=== PATIENT | female | born 1990 | race Caucasian/White ===

== ENCOUNTER 2016-12-05 18:43 | Outpatient (CLI) | payer OTHER ==
[~2016-12-05] VITALS: Ht 165.1 cm; Wt 55.8 kg
[2016-12-05 19:26] VITALS: BP 98/57; PULSE 88; RESP 18; Ht 165.1 cm; Wt 55.8 kg
[2016-12-05] MEDS ORDERED: PREN1TAB62 PO (19:29)
--- NOTE | 2016-12-05 19:48 | RADRPT ---
PROCEDURE: Obstetrical ultrasound greater than 14 weeks CLINICAL INDICATION: induced hypertension TECHNIQUE: Real time sonographic imaging of the gravid uterus is performed transabdominally and mu ltiple static ayala scale and Doppler images are submitted for review as are measurements. The image s are reviewed on the PACS. COMPARISON: 10/08/2016 FINDINGS: There is a single living intrauterine gestation in cephalic presentation. The heart beat is estimated at 134 bpm. The measurements are as follows: BPD:7.94 cm HC:28.70 cm AC:27.55 cm FL:6.11 cm Estimated gestational age is 31 weeks 5 days. The estimated date of delivery is 02/01/2017. The int erval growth is greater than would be anticipated based on the previous exam. The estimated weight is 1814 grams, greater than the 97th percentile. Placenta is posterior and grade 1. There is no evidence of placenta previa or abruption. The amniotic fluid index is not calculated but appears qualitatively normal RPTAT:HJJR IMPRESSION: 1. Single viable intrauterine gestation estimated at 31 weeks 5 days with the estimated date of deli very 02/01/2017, the interval growth greater than would be expected based upon the exam of 6. 2. The estimated weight of 1814 g is greater than the 97th percentile concerning for macrosomi a. Physician Ynes Date Time Electronically viewed and signed by Physician Ynes on 12/05/2016 19:48 /
--- NOTE | 2016-12-05 19:49 | RADRPT ---
PROCEDURE: US OB. CLINICAL INDICATION: induced hypertension TECHNIQUE: Pelvic ultrasound performed for biophysical profile. COMPARISON: Exam from 12/05/2016 and 11/08/2015 FINDINGS: Single intrauterine gestation present with heart rate at 122 beats per minute. Presentation is ceph alic. Placenta is anterior, grade I. Biophysical profile score is 8/8 (breathing=2, movement=2, to ne =2, fluid volume=2). Amniotic fluid volume is within normal limits, with TACHO = 11.2 cm. RPTAT:HJJR IMPRESSION: Biophysical profile score 8/8. Physician Ynes Date Time Electronically viewed and signed by Physician Ynes on 12/05/2016 19:49 JR/
[2016-12-05 20:10] LABS: ADD SCAN DIFF NO
[2016-12-05 20:15] LABS: ADD UMIC YES; URINE BILIRUBIN (Dip) NEGATIVE (NEGATIVE); URINE BLOOD (Dip) 3+ (NEGATIVE); URINE COLOR LT. YELLOW (YELLOW); URINE GLUCOSE (Dip) NEGATIVE (NEGATIVE); URINE KETONES (Dip) NEGATIVE (NEGATIVE); URINE LEUKOCYTE ESTERASE (Dip) NEGATIVE (NEGATIVE); URINE NITRITE (Dip) NEGATIVE (NEGATIVE); URINE TOTAL PROTEIN (Dip) NEGATIVE (NEGATIVE); URINE UROBILINOGEN (Dip) 0.2 E.U./dL (0.1-1.0)
[2016-12-05 20:17] LABS: BASOPHILS % 0.1 % (0.0-2.0); EOSINOPHILS # 0.1 10^3/ul (0.0-0.5); EOSINOPHILS % 1.3 % (0.0-7.0); HEMATOCRIT 28.7 % (37.0-47.0); HEMOGLOBIN 9.6 g/dl (12.0-16.0); LYMPHOCYTES % 24.1 % (15.0-51.0); MEAN CORPUSCULAR HEMOGLOBIN 28.6 pg (29.0-33.0); MEAN CORPUSCULAR HGB CONC 33.4 g/dl (32.0-37.0); MEAN CORPUSCULAR VOLUME 85.4 fl (82.0-101.0); MEAN PLATELET VOLUME 10.6 fl (7.4-10.4); MONOCYTE # 0.4 10^3/ul (0.3-0.9); MONOCYTES % 4.9 % (0.0-11.0); NEUTROPHIL # 5.8 10^3/ul (1.6-7.5); NEUTROPHILS % 69.2 % (39.0-77.0); PLATELET COUNT 204 10^3/UL (140-415); RED BLOOD COUNT 3.36 10^6/ul (4.20-5.40); RED CELL DISTRIBUTION WIDTH 12.8 % (11.5-14.5); WHITE BLOOD COUNT 8.4 10^3/ul (4.8-10.8)
[2016-12-05 20:26] LABS: URINE RBCS >50 /HPF (0)
[2016-12-05 20:27] LABS: ALBUMIN 3.5 g/dl (3.3-4.9); BACTERIA,URINE FEW; SQUAMOUS EPITHELIAL CELL,UR MANY
[2016-12-05 20:28] LABS: POTASSIUM 3.5 mmol/L (3.5-5.1)
[2016-12-05 20:30] LABS: ALBUMIN/GLOBULIN RATIO 1.25; BILIRUBIN,INDIRECT 0.2 mg/dl (0-1.1); BILIRUBIN,TOTAL 0.2 mg/dl (0.2-1.3); CREATININE 0.58 mg/dl (0.44-1.00); TOTAL PROTEIN 6.3 g/dl (6.1-8.1)
--- NOTE | 2016-12-05 21:46 | PN ---
Date/Time of Note Date/Time of Note DATE: 12/05/16 TIME: 21:42 OB Subjective Subjective Subjective 26 yo P 3 @ 28 wks, c/o dizziness No obstetric complaints- good FM,no VB, no LOF, no ctx OB Objective Objective Objective Abdomen- gravid,n/t SVE- deferred FHT- Cat I [place]- no ctx labs: nml WBC, hgb 9.6, nml electrolytes u/a- 3+ blood Abdomen: WNL Heart Rate: 120's Accelerations: Accelerations Present Decelerations: No Decelerations Varibility: Moderate Contractions on Admission: None OB Assessment/Plan Other Assessment: 26 yo P3 @ 28 wks w dizziness, likely secondary to anemia - nml electrolytes, nml WC count - patient advised to return to clinic for urine cltx tomorrow to evaluate blood in urine - advised to take Iron TID, as she has had 3 prior c/d and is at risk for hemorrage during her repeat c/d SAMANTHA KOENIG MD Dec 05, 2016 21:46
--- NOTE | 2016-12-05 21:52 | TRIAGE ---
OB Triage Datetime Report Generated by CPN: 12/05/2016 21:51 Datetime: 12/05/2016 21:40 Labor Evaluation Frequency: 0 Monitor Mode: External Heart Rate FHR Baseline Rate: 125 Monitor Mode: External US FHR Baseline Changes: No Baseline Change Variability: Moderate 6-25 bpm Accelerations: 15X15 Decelerations: None Category: Category I Datetime: 12/05/2016 21:30 Stage of : OB Triage Datetime: 12/05/2016 21:00 Labor Evaluation Frequency: 0 Monitor Mode: External Heart Rate FHR Baseline Rate: 125 Monitor Mode: External US FHR Baseline Changes: No Baseline Change Variability: Moderate 6-25 bpm Accelerations: 15X15 Decelerations: None Category: Category I Datetime: 12/05/2016 19:58 Labor Evaluation Frequency: 0 Monitor Mode: External Heart Rate FHR Baseline Rate: 145 Monitor Mode: External US FHR Baseline Changes: No Baseline Change Variability: Moderate 6-25 bpm Accelerations: 15X15 Decelerations: None Category: Category I Datetime: 12/05/2016 19:11 Stage of : OB Triage Time of Arrival: 12/05/2016 18:40 EGA: 28.3 Arrived By: Wheelchair Arrived From: Office Chief Complaint: C/O DIZZINESS THAT STARTED THIS AM @ [facility] Movement: Present Contractions: Denies/Absent Rupture of Membranes: Denies Vaginal Bleeding: None Vaginal Discharge: Denies Recent Sexual Intercouse: Denies Abdominal Trauma: Not Applicable Time Provider Notified: 12/05/2016 20:23 Provider Notified: DR DICKENS Initial Plan: CALL ABI FLETCHER Maternal Assessment Level of Consciousness: Fully Conscious DTR's/Clonus: DTRs 2+; No Clonus Headache: Denies Blurred Vision: No Respiratory Effort: Unlabored; Regular Rhythm; Equal Expansion Breath Sounds, Left: Clear and Equal Breath Sounds, Right: Clear and Equal Nausea/Vomiting: Denies RUQ Epigastric Pain: Denies Lower Extremities Edema: None Degree: None Upper Extremities Edema: None Degree: None Facial Edema: None Temperature Route: Oral Fall Risk Assessment History of Falling: (0) No Secondary Diagnosis: (0) No Ambulatory Aid: (0) Bedrest/Nurse Assist IV Therapy: (0) No Gait: (0) Normal/Bedrest/Immobile Mental Status: (0) Oriented to Own Ability Fall Score: 0 Fall Risk Score Definition: No Risk: No action required Monitor Mode: External Monitor Mode: External US
== END 2016-12-05 21:30 | disposition home or self-care (01) ==
LOC: OBT 18:43 → L-D 18:43 → OBT 21:30
PROVIDERS: ATTEND Obstetrics & Gynecology
DX: O26.893 Other specified pregnancy related conditions, third trimester (principal); R42 Dizziness and giddiness; O13.3 Gestational [pregnancy-induced] hypertension without significant proteinuria, third trimester; Z3A.28 28 weeks gestation of pregnancy
CPT/HCPCS: 36415; 76815; 76818; 80053; 81001; 85025; Z7500; 81003; G0463

== ENCOUNTER 2017-02-13 14:44 | Inpatient (IN) | payer OTHER ==
[~2017-02-13] VITALS: Ht 165.1 cm; Wt 58.6 kg
[~2017-02-13 14:44] MED LIST: PREN1TAB62 PO
[2017-02-13 15:11] VITALS: Ht 165.1 cm; Wt 58.6 kg
[2017-02-13] MEDS ORDERED: OXYTOCIN 30 UNITS/LR 500 ML IV PRN ×2 (16:00→23:00)
[2017-02-13] MEDS ORDERED: CEFAZOLIN 2 GM/50 ML (PMX) 50 ML IV SCH (16:00)
[2017-02-13] MEDS ORDERED: CARBOPROST 250 MCG INJ IM PRN ×2 (16:00→23:00)
[2017-02-13] MEDS ORDERED: LACTATED RINGER'S 1,000 ML IV SCH (16:00)
[2017-02-13] MEDS ORDERED: MISOPROSTOL 200 MCG TAB PR PRN ×2 (16:00→23:00)
[2017-02-13] MEDS ORDERED: METHYLERGONOVINE 0.2 MG INJ IM PRN ×2 (16:00→23:00)
[2017-02-13 16:36] LABS: ADD SCAN DIFF NO
[2017-02-13 16:37] LABS: BASOPHILS % 0.2 % (0.0-2.0); EOSINOPHILS % 0.3 % (0.0-7.0); HEMATOCRIT 31.3 % (37.0-47.0); LYMPHOCYTES # 2.1 10^3/ul (0.8-2.9); LYMPHOCYTES % 24.3 % (15.0-51.0); MEAN CORPUSCULAR HEMOGLOBIN 27.3 pg (29.0-33.0); MEAN CORPUSCULAR HGB CONC 31.9 g/dl (32.0-37.0); MEAN CORPUSCULAR VOLUME 85.5 fl (82.0-101.0); MEAN PLATELET VOLUME 11.3 fl (7.4-10.4); MONOCYTE # 0.3 10^3/ul (0.3-0.9); MONOCYTES % 3.6 % (0.0-11.0); NEUTROPHIL # 6.3 10^3/ul (1.6-7.5); NEUTROPHILS % 71.3 % (39.0-77.0); PLATELET COUNT 222 10^3/UL (140-415); RED BLOOD COUNT 3.66 10^6/ul (4.20-5.40); RED CELL DISTRIBUTION WIDTH 14.6 % (11.5-14.5); WHITE BLOOD COUNT 8.8 10^3/ul (4.8-10.8)
[2017-02-13] MEDS ORDERED: ONDANSETRON 4 MG INJ IV STA (16:44)
[2017-02-13] MEDS ORDERED: PHENYLephrine (100 MCG/ML) 5ML SYG ONE (16:50)
[2017-02-13] MEDS ORDERED: morphine SULFATE/PF (10 MG/10 ML) INJ ONE (16:50)
[2017-02-13] MEDS ORDERED: ONDANSETRON 4 MG INJ ONE (16:50)
[2017-02-13] MEDS ORDERED: OXYTOCIN 10 UNIT INJ ONE (16:50)
[2017-02-13] MEDS ORDERED: METOCLOPRAMIDE 10 MG INJ ONE (16:50)
[2017-02-13] MEDS ORDERED: KETOROLAC 30 MG INJ ONE (16:50)
[2017-02-13] MEDS ORDERED: DEXAMETHASONE 4 MG/ML 1 ML INJ ONE (16:50)
[2017-02-13] MEDS ORDERED: CITRIC ACID/SODIUM CITRATE 15 ML CUP PO ONE (17:00)
[2017-02-13] MEDS ORDERED: CITRIC ACID/NA CITRATE 30 ML CUP PO ONE (17:00)
[2017-02-13] MEDS ORDERED: ONDANSETRON 4 MG INJ IV ONE (17:00)
[2017-02-13 17:04] LABS: INR 0.93; PROTIME 12.5 Sec (12.2-14.2)
[2017-02-13 17:05] LABS: PARTIAL THROMBOPLASTIN TIME 24.7 Sec (25.0-35.0)
[2017-02-13] MEDS ORDERED: ONDANSETRON 4 MG INJ IV PRN (18:30)
[2017-02-13] MEDS ORDERED: HYDROmorphONE 1 MG/ML SYG IV PRN ×2 (18:30)
[2017-02-13] MEDS ORDERED: HYDROCODONE/APAP (5/325) TAB PO PRN (18:30)
[2017-02-13] MEDS ORDERED: MEPERIDINE 25 MG INJ IV PRN (18:30)
[2017-02-13] MEDS ORDERED: morphine 2 MG INJ IV PRN (18:30)
[2017-02-13] MEDS ORDERED: morphine 4 MG/ML VIAL IV PRN (18:30)
[2017-02-13] MEDS ORDERED: NALBUPHINE HCL (10 MG/1 ML) INJ IV PRN (18:30)
[2017-02-13] MEDS ORDERED: DIPHENHYDRAMINE 50 MG INJ IV PRN ×2 (18:30)
[2017-02-13] MEDS ORDERED: NALOXONE (0.4 MG/ML) INJ IV PRN (18:30)
[2017-02-13] MEDS ORDERED: ACETAMINOPHEN 500 MG TAB PO PRN (18:30)
--- NOTE | 2017-02-13 19:54 | PREOPHP ---
DATE OF ADMISSION: 02/13/2017 HISTORY OF PRESENT ILLNESS: A 26-year-old female 5, para 2-1-1-3, estimated date of deliver y 02/24/2017 at 80-hrmlp-bnh-3 days, was admitted for repeat section. PAST MEDICAL HISTORY: Unremarkable. PAST SURGICAL HISTORY: section x3. ALLERGIES: NO KNOWN ALLERGIES. FAMILY HISTORY: Noncontributory. PHYSICAL EXAMINATION VITAL SIGNS: The patient is afebrile. Vital signs stable. HEAD, NECK AND CHEST: Within normal limits. ABDOMEN: Soft, nontender and gravid. EXTREMITIES: Within normal limits. NEUROLOGIC: Within normal limits. IMPRESSION: at 71-opraz-quq-3 days with previous section x3. The patient desire s surgical sterilization. The case was discussed with Dr. Toscano, perinatologist, who recommends to leena bray the patient at 38 weeks by repeat section due a past history of section x3. PLAN: Repeat section and bilateral tubal ligation. Risks, benefits and alternatives of th e procedure were explained to the patient. The patient has been counseled about all of her contrace ptive options, including all methods of sterilization. It was explained to the patient that with bi lateral tubal ligation there is a chance of failure resulting in ectopic and/or intrauteri ne . After counseling, the patient said she understood and gave informed consent for the p rocedures. Dictated By: ERNESTO GOLDBERG/GALE Conf#: [id number] DID#: [id number]
[2017-02-13 22:30] VITALS: BP 117/76; PULSE 67; RESP 19
[2017-02-13] MEDS ORDERED: LANOLIN 7 GM TUBE TOP PRN (23:00)
[2017-02-13] MEDS: KETOROLAC 30 MG INJ IV PRN (23:08)
--- NOTE | 2017-02-13 23:09 | OPR ---
DATE OF OPERATION: 02/13/2017 PREOPERATIVE DIAGNOSIS: at 38 weeks and 3 days with previous section x3 and volu ntary sterilization. POSTOPERATIVE DIAGNOSES: 1. at 38 weeks and 3 days with previous section x3 and voluntary sterilization. 2. Pelvic adhesions. OPERATION: 1. Repeat low transverse section. 2. Lysis of adhesions. 3. Bilateral tubal ligation. SURGEON: Ernesto Quiles MD VACUUM CLEANER OPERATOR: Jose G Cardenas MD ANESTHESIA: Spinal. ANESTHESIOLOGIST: Perfecto Henderson MD PROCEDURE: The patient was taken to operating room and placed on the operating table. After succes sful spinal anesthesia was given, the patient was placed in supine position. The area was prepared and draped in the usual sterile fashion. Spinal anesthesia was tested and was satisfactory. Using a scalpel, Pfannenstiel incision was made about 2 fingerbreadths above the symphysis pubis. The inc ision was carried down to the fascia. The fascia was incised and extended bilaterally with Mendix sci ssors. Two Kochers were used to separate the fascia from the muscle. The muscle was dissected in m idline down to peritoneum. The peritoneum was secured with 2 Kellys and incised with MetTendrilbaum sci ssors. Upon entering the peritoneal cavity, pelvic adhesions were noted. Sharp and blunt lysis of adhesions was performed with close attention to the bladder and the intestines. Using a scalpel, a small transverse incision was made in the ____ of the uterus. Upon entering the uterine cavity, ban dage scissors were inserted to extend the incision bilaterally, curved up. Baby was delivered from cephalic presentation. After suctioning clear of amniotic fluid, the baby was handed off to the gordon natologist in attendance. Apgars were 9 and 9. Placenta was delivered without difficulty. The little traverse tegan was closed with #1 Monocryl continuous locked. Using 0 chromic, [id number]-[id number] were placed at the site of adhesions for hemostasis. After assuring hemostasis, both ovaries and tubes were inspe cted and looked normal. The right fallopian tube was grasped with a [place] clamp. Using 0 plain s uture ligature, a 5 cm segment of the right fallopian tube was doubly ligated. Using Metzenbaum sci ssors, a portion of the right fallopian tube above the ligated area, was excised and sent to patholo gy. Same procedure was repeated on the left fallopian tube. After assuring hemostasis, the periton eal cavity was irrigated with warm saline. The peritoneum was closed with 2-0 Vicryl continuous. T he fascia was closed with #1 Vicryl continuous in 2 segments. Subcutaneous tissue was reapproximate d with 2-0 plain. The skin was closed with laurent. ESTIMATED BLOOD LOSS: 500 mL. COMPLICATIONS: None. COUNTS: All counts were correct. Dictated By: ERNESTO GOLDBERG/GALE Conf#: [id number] DID#: [id number]
[2017-02-14 00:05] VITALS: BP 113/66; PULSE 66; RESP 20
[2017-02-14] MEDS: OXYTOCIN 30 UNITS/LR 500 ML IV SCH ×2 (01:58→05:50)
[2017-02-14 03:30] VITALS: BP 109/60; RESP 18
[2017-02-14] MEDS: KETOROLAC 30 MG INJ IV PRN ×2 (05:35→12:53)
[2017-02-14] MEDS: LACTATED RINGER'S 1,000 ML IV SCH ×3 (06:56→14:56)
--- NOTE | 2017-02-14 07:13 | OPPN ---
Date/Time of Note Date/Time of Note DATE: 02/14/17 TIME: 07:13 Post-Anesthesia Notes Post-Anesthesia Note Last documented vital signs Vital Signs Date Time Temp Pulse Resp B/P Pulse Ox O2 Delivery O2 Flow Rate FiO2 02/14/17 03:30 98.1 18 109/60 Room Air 02/14/17 01:59 98 21 02/14/17 00:05 66 Activity: WNL Respiratory function: WNL Cardiovascular function: WNL Mental status: Baseline Pain reasonably controlled: Yes Hydration appropriate: Yes Nausea/Vomiting absent: Yes MIGUEL HOLT MD February 14, 2017 07:13
[2017-02-14 08:00] VITALS: BP 102/59; PULSE 57; RESP 17
[2017-02-14 08:11] LABS: ADD SCAN DIFF NO
[2017-02-14 08:38] LABS: BASOPHILS % 0.2 % (0.0-2.0); HEMATOCRIT 27.9 % (37.0-47.0); HEMOGLOBIN 8.9 g/dl (12.0-16.0); MEAN CORPUSCULAR HEMOGLOBIN 27.3 pg (29.0-33.0); MEAN CORPUSCULAR HGB CONC 31.9 g/dl (32.0-37.0); MEAN CORPUSCULAR VOLUME 85.6 fl (82.0-101.0); MEAN PLATELET VOLUME 11.7 fl (7.4-10.4); MONOCYTE # 0.9 10^3/ul (0.3-0.9); MONOCYTES % 6.4 % (0.0-11.0); NEUTROPHIL # 10.4 10^3/ul (1.6-7.5); NEUTROPHILS % 77.9 % (39.0-77.0); PLATELET COUNT 200 10^3/UL (140-415); RED BLOOD COUNT 3.26 10^6/ul (4.20-5.40); RED CELL DISTRIBUTION WIDTH 14.6 % (11.5-14.5); WHITE BLOOD COUNT 13.4 10^3/ul (4.8-10.8)
[2017-02-14] MEDS: SENNA/DOCUSATE NA (8.6MG/50MG) TAB PO SCH ×2 (08:41→21:30)
--- NOTE | 2017-02-14 10:58 | QN ---
Documentation Comment No complaint Afebrile VSS Strip Reactive Will repeat TACHO today. ERNESTO DICKENS MD February 14, 2017 10:58
--- NOTE | 2017-02-14 11:04 | QN ---
Documentation Comment No complaint Afebrile VSS Abdomen soft POD #1 Stable Ambulate Advance diet. ERNESTO DICKENS MD February 14, 2017 11:04
[2017-02-14 11:55] VITALS: BP 97/58; PULSE 76; RESP 17
[2017-02-14] MEDS: FERROUS SULFATE (EC) 325 MG TAB PO SCH ×2 (12:52→21:30)
[2017-02-14 15:30] VITALS: BP 96/57; PULSE 83; RESP 18
[2017-02-14] MEDS ORDERED: OXYCODONE/ACETAMINOPHEN (5/325) TAB PO PRN (17:50)
[2017-02-14] MEDS: OXYCODONE/ACETAMINOPHEN (5/325) TAB PO PRN (18:14)
[2017-02-14 20:05] VITALS: BP 106/64; PULSE 92; RESP 18
[2017-02-14] MEDS: IBUPROFEN 800 MG TAB PO SCH (21:30)
[2017-02-15 04:00] VITALS: BP 105/55; PULSE 86; RESP 18
[2017-02-15] MEDS: OXYCODONE/ACETAMINOPHEN (5/325) TAB PO PRN ×3 (04:16→19:07)
[2017-02-15] MEDS: IBUPROFEN 800 MG TAB PO SCH ×3 (06:23→21:09)
[2017-02-15 08:00] VITALS: BP 103/51; PULSE 51; RESP 75
[2017-02-15] MEDS: SENNA/DOCUSATE NA (8.6MG/50MG) TAB PO SCH ×2 (09:57→20:26)
[2017-02-15] MEDS: FERROUS SULFATE (EC) 325 MG TAB PO SCH ×3 (09:58→20:26)
--- NOTE | 2017-02-15 11:18 | PN ---
Date/Time of Note Date/Time of Note DATE: 02/15/17 TIME: 11:17 OB Subjective Subjective Subjective Post day 1 Afebrile vital signs stable abdomen soft bowel sounds uterus firm incision extremities normal ambulation recommended diet advanced as tolerated PANCHITO PALACIOS MD February 15, 2017 11:18
[2017-02-15 15:52] VITALS: BP_SYST 101; BP_SYST 113; BP_DIAS 64; PULSE 75; RESP 18
[2017-02-16 03:47] VITALS: BP 119/77; PULSE 75; RESP 18
[2017-02-16] MEDS: OXYCODONE/ACETAMINOPHEN (5/325) TAB PO PRN (03:54)
[2017-02-16] MEDS: IBUPROFEN 800 MG TAB PO SCH ×2 (06:20→12:32)
[2017-02-16 08:15] VITALS: BP 97/58; PULSE 76; RESP 14
[2017-02-16] MEDS ORDERED: DIPHTH/TET/ACEL PERTUSS (ADULT) 0.5 ML VIAL IM* ONE (09:00)
[2017-02-16] MEDS: FERROUS SULFATE (EC) 325 MG TAB PO SCH ×2 (10:18→12:32)
[2017-02-16] MEDS: SENNA/DOCUSATE NA (8.6MG/50MG) TAB PO SCH (10:18)
--- NOTE | 2017-02-16 10:19 | PD.PPDC ---
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
--- NOTE | 2017-02-16 10:23 | DS ---
Date/Time of Note Date/Time of Note DATE: 02/16/17 TIME: 10:21 Discharge Summary Admission/Discharge Info Admit Date/Time February 13, 2017 at 14:44 Discharge Date/Time February 16, 2017 at 10:30 AM Final Diagnosis Post bilateral tubal ligation Patient Condition: Good Procedures Repeat bilateral tubal ligation Hx of Present Illness Term with history of previous Hospital Course Uneventful satisfactory Home Meds Reported Medications Vit-Iron Fumarate-FA ( Vitamin Tablet) 1 Each Tablet, 1 TAB PO DAILY, TAB 12/05/16 Follow-up Plan Appointment clinic in 4 days for postop check PANCHITO PALACIOS MD February 16, 2017 10:23
== END 2017-02-16 14:00 | disposition home or self-care (01) | DRG 766 ==
LOC: L-D 14:44 → PP1 22:24
PROVIDERS: ADMIT Obstetrics & Gynecology; ATTEND Obstetrics & Gynecology
PROC: 0UL70ZZ Occlusion of Bilateral Fallopian Tubes, Open Approach (ICD-10-PCS; 2017-02-13)
PROC: 10D00Z1 Extraction of Products of Conception, Low, Open Approach (ICD-10-PCS; principal; 2017-02-13 17:00)
DX: O34.211 Maternal care for low transverse scar from previous cesarean delivery (principal); K66.0 Peritoneal adhesions (postprocedural) (postinfection); O99.62 Diseases of the digestive system complicating childbirth; Z30.2 Encounter for sterilization; Z3A.38 38 weeks gestation of pregnancy; Z37.0 Single live birth
CPT/HCPCS: 85025; 85610; 85730; 86592; 86850; 86900; 86901; 86920; 87340; 88302; 90715; 94760; 99464; J0690; J1100; J1885; J2274; J2370; J2405; J2590; J2765; J7120

== ENCOUNTER 2017-05-04 10:13 | Emergency (ER) | payer OTHER ==
[~2017-05-04] VITALS: Ht 165.1 cm; Wt 52.0 kg
[2017-05-04 10:14] VITALS: Ht 165.1 cm; Wt 52.0 kg
[2017-05-04 10:34] LABS: URINE BLOOD (Dip) POC 3+ (NEGATIVE)
[2017-05-04] MEDS ORDERED: CIPR500T4 PO (10:47)
[2017-05-04 11:40] LABS: ADD UMIC YES; UR ASCORBIC ACID NEGATIVE (NEGATIVE); UR BILIRUBIN (Dip) NEGATIVE (NEGATIVE); UR BLOOD (Dip) 2+ mg/dL (NEGATIVE); UR CLARITY SLIGHTLY CLOUDY (CLEAR); UR COLOR YELLOW (YELLOW); UR GLUCOSE (Dip) NEGATIVE (NEGATIVE); UR KETONES (Dip) NEGATIVE (NEGATIVE); UR LEUKOCYTE ESTERASE (Dip) 1+ Leu/ul (NEGATIVE); UR NITRITE (Dip) NEGATIVE (NEGATIVE); UR RBC 69 /HPF (0-5); UR SQUAMOUS EPITHELIAL CELL FEW /HPF (FEW); UR TOTAL PROTEIN (Dip) 1+ mg/dl (NEGATIVE); UR UROBILINOGEN (Dip) NEGATIVE (NEGATIVE)
[2017-05-04] MEDS ORDERED: KETOROLAC 15 MG INJ IM STA (11:53)
[2017-05-04] MEDS ORDERED: NITR-58 PO (12:04)
--- NOTE | 2017-05-04 15:59 | ERA ---
ER Documentation Chief Complaint Date/Time DATE: 05/04/17 TIME: 15:51 Chief Complaint r.side flank pain with pain with urination x 1 week HPI This is a 26-year-old female presenting with right-sided flank pain and dysuria. Patient states that she feels like she has had a UTI for the past couple of days. Patient has not been treated for her symptoms to this point. Patient's last menstrual period was 2 weeks ago. Patient has had a tubal ligation. Patient has not taken any medications to relieve the symptoms. No sick contacts. No recent travel. Patient denies constipation, abdominal pain, decreased appetite, recent unintentional weight loss, migrating pain, or symptoms associated with food. ROS All systems reviewed and are negative except as per history of present illness. Medications Home Meds Active Scripts Nitrofurantoin Monohyd Macrocr* (Macrobid*) 100 Mg Capsr, 100 MG PO BID for 14 Days, CAP Prov:NELLY RIVERA PA-C 05/04/17 Reported Medications Vit-Iron Fumarate-FA ( Vitamin Tablet) 1 Each Tablet, 1 TAB PO DAILY, TAB 12/05/16 Discontinued Scripts Ciprofloxacin Hcl* (Ciprofloxacin Hcl*) 500 Mg Tablet, 500 MG PO BID for 10 Days , TAB Prov:NELLY RIVERA PA-C 05/04/17 Allergies Allergies: Coded Allergies: No Known Allergy (Unverified , 05/04/17) PMhx/Soc Hx Neurological Disorder: Yes Hx Alcohol Use: No Hx Substance Use: No Hx Tobacco Use: No Physical Exam Vitals Vital Signs Date Time Temp Pulse Resp B/P Pulse Ox O2 Delivery O2 Flow Rate FiO2 05/04/17 10:14 98.3 16 66 115/56 100 Physical Exam Const: Well-appearing 26-year-old female no acute distress Head: Atraumatic Eyes: Normal Conjunctiva ENT: Normal External Ears, Nose and Mouth. Neck: Full range of motion..~ No meningismus. Resp: Clear to auscultation bilaterally Cardio: Regular rate and rhythm, no murmurs Abd: Moderate suprapubic tenderness. Soft, non tender, non distended. Normal bowel sounds Skin: No petechiae or rashes Back: Mild right CVA tenderness. No midline or flank tenderness Ext: No cyanosis, or edema Neur: Awake and alert Psych: Normal Mood and Affect Results 24 hrs Laboratory Tests Test 05/04/17 10:39 05/04/17 11:00 Bedside Urine pH (LAB) 5.5 Bedside Urine Protein (LAB) 2+ Bedside Urine Glucose (UA) Negative Bedside Urine Ketones (LAB) Negative Bedside Urine Blood 3+ Bedside Urine Nitrite (LAB) Negative Bedside Urine Leukocyte Esterase (L Trace Urine Color YELLOW Urine Clarity SLIGHTLY CLOUDY Urine pH 5.0 Urine Specific [place] 1.020 Urine Ketones NEGATIVEmg/dL Urine Nitrite NEGATIVEmg/dL Urine Bilirubin NEGATIVEmg/dL Urine Urobilinogen NEGATIVEmg/dL Urine Leukocyte Esterase 1+Pradeep/ul Urine Microscopic RBC 69/HPF Urine Microscopic WBC 6/HPF Urine Squamous Epithelial Cells FEW/HPF Urine Hemoglobin 2+mg/dL Urine Glucose NEGATIVEmg/dL Urine Total Protein 1+mg/dl Current Medications Medications (Trade) Dose Ordered Sig/Humera Route PRN Reason Start Time Stop Time Status Last Admin Dose Admin Ketorolac Tromethamine (Toradol) 15 mg ONCE STAT IM 05/04/17 11:53 05/04/17 11:54 DC 05/04/17 11:56 Procedures/MDM 26-year-old female presenting with chief complaint of dysuria and right flank pain. Patient had no flank pain on the physical examination further history revealed patient was having more suprapubic discomfort. Signs and symptoms are consistent with urinary tract infection. Patient's vitals are stable and urinalysis revealed 1+ leukocyte esterase. test was negative. I will go ahead and treat the patient for lower urinary tract infection as of little suspicion for pyelonephritis, PID, ovarian torsion, ectopic , appendicitis, or obstruction. At this time nephrolithiasis is also in the differential diagnosis. Little suspicion for obstruction. Patient has refused pain medication. Patient later decided that she wanted a little bit of pain medication so Toradol 15 IM was given with resolution of symptoms. Patient will be discharged with nitrofurantoin 100 mg 5 days. I spoke with my attending who agrees with this assessment and plan. I have spoke with the patient regarding their condition and future management. They have verbally responded that they understand their status and treatment plan. The patients vitals are stable, and their current condition is appropriate for discharge. The patient will be given discharge instructions with return precautions. Departure Diagnosis: Primary Impression: Nephrolithiasis Additional Impression: UTI (urinary tract infection) Qualified Code: N39.0 - Urinary tract infection with hematuria, site unspecified Condition: Stable Patient Instructions: When Your Child Has Hematuria: Urologic Causes, Hematuria Additional Instructions: Follow up with your PCP within the next 1-3 days for a more thorough evaluation and a possible referral to a specialist. Return the the emergency department immediately if symptoms worsen or change. If you have any questions regarding medications, ask your pharmacist or us before you leave. If any adverse reactions occur while taking your medications, discontinue the treatment and return to the emergency department immediately. Take your medications as directed, and complete the entire course of treatment. NELLY RIVERA PA-C May 04, 2017 15:59
== END 2017-05-04 12:11 | disposition home or self-care (01) ==
LOC: FTE 10:13
DX: N20.0 Calculus of kidney (principal); N39.0 Urinary tract infection, site not specified
CPT/HCPCS: 81001; 87086; 96372; J1885; Z7502; 81003

== ENCOUNTER 2017-06-28 20:45 | Emergency (ER) | payer OTHER ==
[~2017-06-28] VITALS: Ht 162.6 cm; Wt 56.5 kg
[~2017-06-28 20:45] MED LIST changes: +NITR-58 PO
[2017-06-28 20:47] VITALS: Ht 162.6 cm; Wt 56.5 kg
[2017-06-28] MEDS ORDERED: FLUORESCEIN STRIP RIGHT EYE ONE (22:30)
[2017-06-28] MEDS ORDERED: TETRACAINE 0.5% 4 ML OPH BOTH EYES ONE (22:30)
[2017-06-28] MEDS ORDERED: OFLO5DRO46 RIGHT EYE (22:46)
--- NOTE | 2017-06-28 22:52 | ERD ---
ER Documentation Chief Complaint Date/Time DATE: 06/28/17 TIME: 22:46 Chief Complaint right eye redness HPI Patient is a 26-year-old female who presents to the emergency department for concerns of right eye redness and itching after getting Clari soap in her R eye earlier today. Patient describes burning of her eye. Patient denies any visual changes. Patient denies any fevers or chills. Patient does not wear contact lens. Patient denies trying any medications. Patient denies any trauma injuries. ROS All systems reviewed and are negative except as per history of present illness. Medications Home Meds Active Scripts Ofloxacin* (Ocuflox*) 0.3%-5 Ml Ophth Drops, 1 DROP RIGHT EYE QID for 7 Days, # 1 BOTTLE Prov:SESAR WELSH PA-C 06/28/17 Nitrofurantoin Monohyd Macrocr* (Macrobid*) 100 Mg Capsr, 100 MG PO BID for 14 Days, CAP Prov:NELLY RIVERA PA-C 05/04/17 Reported Medications Vit-Iron Fumarate-FA ( Vitamin Tablet) 1 Each Tablet, 1 TAB PO DAILY, TAB 12/05/16 Allergies Allergies: Coded Allergies: No Known Allergy (Unverified , 05/04/17) PMhx/Soc Medical and Surgical Hx: pt denies Medical Hx History of Surgery: Yes ( X4) Hx Neurological Disorder: Yes Hx Alcohol Use: No Hx Substance Use: No Hx Tobacco Use: No Smoking Status: Never smoker Physical Exam Vitals Vital Signs Date Time Temp Pulse Resp B/P Pulse Ox O2 Delivery O2 Flow Rate FiO2 06/29/17 01:08 78 20 125/69 97 Room Air 06/28/17 20:47 97.9 76 20 119/65 99 Physical Exam GENERAL: Well-developed, well-nourished female. Appears in no acute distress. HEAD: Normocephalic, atraumatic. EYE: Visual acuity w/ Snellen eye chart: see note in interventions Normal eye alignment. Right upper eyelid appears slightly swollen and erythematous. No proptosis. Pupils equal, round, and reactive to light. EOMs intact. Right conjunctiva appears erythematous. Anterior chamber clear. No hyphema or hypopion. Wood's lamp exam: No foreign bodies, corneal abrasions or ulcerations visualized with fluorescein dye. Negative Devan sign. NECK: Supple. No meningismus. Normal range of motion of the neck. LUNG: Clear to auscultation bilaterally. No rhonchi, wheezing, rales or coarse breath sounds. HEART: Regular rate and rhythm. No murmurs, rubs or gallops. EXTREMITIES: Equal pulses bilaterally. No peripheral clubbing, cyanosis or edema. No unilateral leg swelling. NEUROLOGIC: Alert and oriented. Moving all four extremities without any difficulty. Normal speech. Steady gait. SKIN: Normal color. Warm and dry. No rashes or lesions. Results 24 hrs Current Medications Medications (Trade) Dose Ordered Sig/Humera Route PRN Reason Start Time Stop Time Status Last Admin Dose Admin Tetracaine HCl (Tetracaine 0.5% Steri-Unit Katharina) 1 drop ONCE ONCE BOTH EYES 06/28/17 22:30 06/28/17 22:31 DC Fluorescein Sodium (Hnvpg-N-Soirz) 1 strip ONCE ONCE RIGHT EYE 06/28/17 22:30 06/28/17 22:31 DC Procedures/MDM MEDICAL DECISION MAKING: This is a 26-year-old female who presents the emergency department for concerns of right eye redness and itching after getting Clari soap in her eye earlier today. Vital signs were reviewed. Patient was afebrile. Patient's vision was grossly intact. Wood lamp exam was negative for any abrasions or ulcerations. Patient's eye was rinsed out with Kanu Lens and 500 cc of NS. She reported improvement in symptoms prior to discharge. At this time, patient's presentation is most consistent with corneal irritation. I will treat the patient with course of antibiotic eyedrops to prevent any bacterial infections. Low suspicion for globe rupture, bacterial conjunctivitis, allergic conjunctivitis, corneal abrasion, corneal ulcer, retained eye foreign body, periorbital cellulitis, orbital cellulitis PRESCRIPTIONS: Ocuflox DISCHARGE: At this time, patient is stable for discharge and outpatient management. Supportive measures were discussed with patient including warm/cool compresses. Patient advised not to wear contact lenses or eye makeup. I have instructed the patient to follow-up with his/her primary care physician in 1-2 days. Patient was advised to follow-up with an eyewear consultant next 1-2 days. Referral information provided.. I have instructed the patient to promptly return to the ER for any new or worsening symptoms including increased pain, fever, swelling, redness, warmth, nausea, vomiting, . The patient and/or family expressed understanding of and agreement with this plan. All questions were answered. Home care instructions were provided. Disclaimer: Inadvertent spelling and grammatical errors are likely due to EHR/ dictation software use and do not reflect on the overall quality of patient care. Also, please note that the electronic time recorded on this note does not necessarily reflect the actual time of the patient encounter. Departure Diagnosis: Primary Impression: Eye injury Encounter type: initial encounter Laterality: right Qualified Code: S05.91XA - Right eye injury, initial encounter Condition: Stable Patient Instructions: Corneal Injury Referrals: [facility] YOU HAVE RECEIVED A MEDICAL SCREENING EXAM AND THE RESULTS INDICATE THAT YOU DO NOT HAVE A CONDITION THAT REQUIRES URGENT TREATMENT IN THE EMERGENCY DEPARTMENT. FURTHER EVALUATION AND TREATMENT OF YOUR CONDITION CAN WAIT UNTIL YOU ARE SEEN IN YOUR DOCTORS OFFICE WITHIN THE NEXT 1-2 DAYS. IT IS YOUR RESPONSIBILITY TO MAKE AN APPOINTMENT FOR FOLOW-UP CARE. IF YOU HAVE A PRIMARY DOCTOR --you should call your primary doctor and schedule an appointment IF YOU DO NOT HAVE A PRIMARY DOCTOR YOU CAN CALL OUR PHYSICIAN REFERRAL HOTLINE AT IF YOU CAN NOT AFFORD TO SEE A PHYSICIAN YOU CAN CHOSE FROM THE FOLLOWING [facility] [address] [facility]. [facility] [address] [facility] [facility] [address] [facility] [address] [facility] [address] [facility]. [facility]. [address] [facility]. [facility] YOU HAVE RECEIVED A MEDICAL SCREENING EXAM AND THE RESULTS INDICATE THAT YOU DO NOT HAVE A CONDITION THAT REQUIRES URGENT TREATMENT IN THE EMERGENCY DEPARTMENT. FURTHER EVALUATION AND TREATMENT OF YOUR CONDITION CAN WAIT UNTIL YOU ARE SEEN IN YOUR DOCTORS OFFICE WITHIN THE NEXT 1-2 DAYS. IT IS YOUR RESPONSIBILITY TO MAKE AN APPOINTMENT FOR FOLOW-UP CARE. IF YOU HAVE A PRIMARY DOCTOR --you should call your primary doctor and schedule and appointment IF YOU DO NOT HAVE A PRIMARY DOCTOR YOU CAN CALL OUR PHYSICIAN REFERRAL HOTLINE AT . IF YOU CAN NOT AFFORD TO SEE A PHYSICIAN YOU CAN CHOSE FROM THE FOLLOWING [facility] INSTITUTIONS: [facility] [address] [place] [address] [facility] [address] [place] [address] [facility] [address] [place] [address] [facility] Hours: Mon - Fri 9:00 AM - 5:00 PM Additional Instructions: Call your primary care doctor/[employer]PER[employer] TOMORROW for an appointment during the next 1-2 days.See the doctor sooner or return here if your condition worsens before your appointment time. SESAR WELSH PA-C Jun 28, 2017 22:52
[2017-06-29 01:08] VITALS: BP 125/69; PULSE 78; RESP 20
== END 2017-06-29 01:09 | disposition home or self-care (01) ==
LOC: FTE 20:45
DX: S05.91XA Unspecified injury of right eye and orbit, initial encounter (principal); X58.XXXA Exposure to other specified factors, initial encounter; Y92.9 Unspecified place or not applicable
CPT/HCPCS: Z7502; Z7610; 99284

== ENCOUNTER 2018-06-06 13:35 | Emergency (ER) | END 2018-06-06 16:24 | disposition home or self-care (01) ==